=== PATIENT | female | born 1965 | race Caucasian/White ===

== ENCOUNTER 2018-05-18 09:31 | Emergency (ER) | payer OTHER ==
[2018-05-18] MEDS ORDERED: ONDANSETRON 4 MG/2 ML VIAL ONE (10:28)
[2018-05-18] MEDS ORDERED: KETOROLAC 30 MG/ML INJ ONE (10:28)
[2018-05-18] MEDS ORDERED: FENTANYL CITR 100 MCG/2 ML ONE (10:28)
[2018-05-18 10:35] LABS: Absolute Lymphocytes (CBC) 1.2 K/uL (0.7-4.9); Absolute Monocytes 0.6 K/uL (0.1-1.3); Absolute Neutrophil 6.5 K/uL (1.8-8.0); Basophils % 0.8 % (0-1.3); Eosinophils % 2.6 % (0-4.4); Hematocrit 44.4 % (36.0-45.0); Lymphocytes % 14.4 % (15.3-44.8); MCH 29.1 pg (27.0-35.0); MCV 86.8 fL (80-100); MPV 8.6 fL (7.6-11.3); RBC Red Blood Cell Count 5.11 M/uL (3.86-4.86)
[2018-05-18 10:48] LABS: Albumin 3.6 g/dL (3.4-5.0); Bilirubin Direct 0.1 mg/dL (0-0.2); Bilirubin Total 0.5 mg/dL (0.2-1.0); Potassium 4.2 mmol/L (3.5-5.1); Protein, Total 7.5 g/dL (6.4-8.2)
--- NOTE | 2018-05-18 11:00 | RAD REPORT ---
EXAM DESCRIPTION: CT - Abdomen Pelvis Wo Contrast - 05/18/2018 10:38 am CLINICAL HISTORY: Abdominal pain right flank pain since this morning. COMPARISON: None TECHNIQUE: Computed axial tomography of the abdomen and pelvis was obtained. IV and oral contrast we re not requested. All CT scans are performed using dose optimization technique as appropriate and may include automated exposure control or mA/KV adjustment according to patient size. FINDINGS: The evaluation of solid organs, vessels and bowel is limited secondary to the lack of con trast administration. Small bilateral renal calculi are present. Mild right hydronephrosis is seen. Two calculi are present within the proximal right ureter. One measures 6 millimeters. The other 2.8 millimeters. Hounsfield unit 449. The liver has a diminished attenuation compatible with fatty the spleen, pancreas and adrenals appear grossly normal. Postsurgical changes involve stomach. A small umbilical hernia contains fat. The appendix is normal. There is no evidence of diverticulitis. A hysterectomy has been performed IMPRESSION: Proximal right ureteral calculi resulting in mild right hydronephrosis
--- NOTE | 2018-05-18 11:51 | EDPHYS ---
Physician Documentation [facility] Name: Unruly Vasquez Age: 53 yrs Sex: Female : 1965 Arrival Date: 05/18/2018 Time: 09:34 Bed 7 Private MD: Vasquez Hurtado ED Physician Sudarshan Infante HPI: 05/18 11:41 This 53 yrs old Female presents to ER via Ambulatory with complaints of RIGHT wa SIDE PAIN. 11:41 The patient complains of pain in the right flank. Location: right flank. Onset: The wa symptoms/episode began/occurred 3 day(s) ago. Modifying factors: The symptoms are alleviated by nothing. the symptoms are aggravated by nothing. Associated signs and symptoms: Pertinent positives: noted discolored urine x 1 week. denies dysuria or frequency. denies fever or chills. Severity of pain: At its worst the pain was moderate in the emergency department the pain is actually worse markedly. The patient has experienced a previous episode, h/o kidney stones. The patient has been recently seen by a physician: the patient's primary care provider. Historical: - Allergies: 09:37 No Known Allergies; hb - PMHx: 09:39 Breast CA; hb - PSHx: 09:39 Mastectomy; hb 09:39 ; Hysterectomy; hb - Immunization history:: Adult Immunizations up to date. - Social history:: Smoking status: Patient/guardian denies using alcohol, street drugs, tobacco products. - Family history:: not pertinent. - Ebola Screening: : No symptoms or risks identified at this time. - Hospitalizations: : No recent hospitalization is reported. ROS: 11:44 Constitutional: Negative for fever, chills, and weight loss, Eyes: Negative for injury, wa pain, redness, and discharge, ENT: Negative for injury, pain, and discharge, Neck: Negative for injury, pain, and swelling, Cardiovascular: Negative for chest pain, palpitations, and edema, Respiratory: Negative for shortness of breath, cough, wheezing, and pleuritic chest pain, Back: Negative for injury and pain, MS/Extremity: Negative for injury and deformity, Skin: Negative for injury, rash, and discoloration, Neuro: Negative for headache, weakness, numbness, tingling, and seizure, Psych: Negative for depression, anxiety, suicide ideation, homicidal ideation, and hallucinations. 11:44 Abdomen/GI: Positive for of the right flank, Negative for nausea and vomiting, diarrhea. 11:44 : Positive for urine discoloration. 11:44 All other systems are negative. Exam: 11:45 Constitutional: This is a well developed, well nourished patient who is awake, alert, wa and in no acute distress. Head/Face: Normocephalic, atraumatic. Eyes: Pupils equal round and reactive to light, extra-ocular motions intact. Lids and lashes normal. Conjunctiva and sclera are non-icteric and not injected. Cornea within normal limits. Periorbital areas with no swelling, redness, or edema. ENT: Nares patent. No nasal discharge, no septal abnormalities noted. Tympanic membranes are normal and external auditory canals are clear. Oropharynx with no redness, swelling, or masses, exudates, or evidence of obstruction, uvula midline. Mucous membranes moist. Neck: Trachea midline, no thyromegaly or masses palpated, and no cervical lymphadenopathy. Supple, full range of motion without nuchal rigidity, or vertebral point tenderness. No Meningismus. Chest/axilla: Normal chest wall appearance and motion. Nontender with no deformity. No lesions are appreciated. Cardiovascular: Regular rate and rhythm with a normal S1 and S2. No gallops, murmurs, or rubs. Normal PMI, no JVD. No pulse deficits. Respiratory: Lungs have equal breath sounds bilaterally, clear to auscultation and percussion. No rales, rhonchi or wheezes noted. No increased work of breathing, no retractions or nasal flaring. Back: No spinal tenderness. No costovertebral tenderness. Full range of motion. Skin: Warm, dry with normal turgor. Normal color with no rashes, no lesions, and no evidence of cellulitis. MS/ Extremity: Pulses equal, no cyanosis. Neurovascular intact. Full, normal range of motion. Neuro: Awake and alert, GCS 15, oriented to person, place, time, and situation. Cranial nerves II-XII grossly intact. Motor strength 5/5 in all extremities. Sensory grossly intact. Cerebellar exam normal. Normal gait. Psych: Awake, alert, with orientation to person, place and time. Behavior, mood, and affect are within normal limits. 11:45 Abdomen/GI: Inspection: abdomen appears normal, Bowel sounds: normal, in all quadrants, Palpation: soft, in all quadrants, mild abdominal tenderness, in the right lower quadrant. Vital Signs: 09:37 BP 170 / 101; Pulse 66; Resp 18; Temp 98.7(O); Pulse Ox 96% on R/A; Pain 8/10; hb 10:34 BP 152 / 92; Pulse 70; Resp 24; Pulse Ox 97% on R/A; sv 10:50 BP 147 / 88; Pulse 60; Resp 20; Pulse Ox 95% on R/A; sv 12:07 BP 135 / 75; Pulse 66; Resp 20; Pulse Ox 99% ; sv MDM: 09:41 Patient medically screened. de 11:46 Differential diagnosis: nephrolithiasis, pyelonephritis, UTI. Data reviewed: vital wa signs, nurses notes, lab test result(s). Test interpretation: by ED physician or midlevel provider: labs faxed from PMDs office shows 3+ blood in UA. also 6-10 wbcs in UA. nml renal fxn.. 11:47 Test interpretation: by ED physician or midlevel provider: CT abd/pelvis: R ureteral wa stone x 2. 6mm and 2mm proximal ureter with assoc hydro. Response to treatment: the patient's symptoms have markedly improved after treatment. 11:48 Special discussion: will give abx. will d/c with Toradol and Flomax. close urology f/u. wa pt advised. 05/18 10:16 Order name: Basic Metabolic Panel; Complete Time: 11:05/18 10:16 Order name: CBC with Diff; Complete Time: 11:05/18 10:16 Order name: Hepatic Function; Complete Time: 11:05/18 10:16 Order name: Lipase; Complete Time: 11:05/18 10:18 Order name: CT Abd/Pelvis - Without Cont; Complete Time: 11:05/18 10:16 Order name: IV Saline Lock; Complete Time: :05/18 10:16 Order name: Labs collected and sent; Complete Time: 10:05/18 10:16 Order name: Urine Dipstick-Ancillary (obtain specimen); Complete Time: 12:10 de Administered Medications: 10:28 Drug: Zofran 2 mg Route: IVP; Site: right antecubital; sv 11:00 Follow up: Response: No adverse reaction sv 10:30 Drug: fentaNYL (PF) 50 mcg Route: IVP; Site: right antecubital; sv 11:00 Follow up: Response: No adverse reaction sv 10:33 Drug: TORadol 30 mg Route: IVP; Site: right antecubital; sv 11:00 Follow up: Response: No adverse reaction sv 12:10 CANCELLED (Duplicate Order): Rocephin - (cefTRIAXone) 1 grams IVPB once over 30 mins; sv (mix in 50 mL NS) 12:15 Drug: Rocephin 1 grams Route: IV; Rate: calculated rate; Site: right antecubital; sv 12:21 Follow up: Response: No adverse reaction; IV Status: Completed infusion; IV Intake: 10mlsv Disposition: 05/18/18 11:50 Discharged to Home. Impression: Acute Right flank pain, Right Ureteral stones with associated hydronephrosis. - Condition is Stable. - Prescriptions for ketorolac 10 mg Oral tablet - take 1 tablet by ORAL route every 8 hours not to exceed 40mg in 24hrs for up to 5 days total use; 15 tablet. Flomax 0.4 mg Oral Capsule, Sust. Release 24 hr - take 1 capsule by ORAL route once daily 1/2 hour following the same meal each day; 7 capsule. Zofran 4 mg Oral Tablet - take 1 tablet by ORAL route every 12 hours As needed; 6 tablet. Cipro 500 mg Oral Tablet - take 1 tablet by ORAL route every 12 hours for 3 days; 6 tablet. - Medication Reconciliation Form, Thank You Letter, Antibiotic Education, Prescription Opioid Use form. - Follow up: Lisa Solano MD; When: 1 - 2 days; Reason: Recheck today's complaints. - Problem is new. - Symptoms have improved. - Notes: follow up with Dr. Solano as discussed for evaluation for the stone in your Right ureter. Signatures: Dispatcher [employer] Leesa Crane RN RN Christine Graves RN RN Sudarshan Infante MD MD wa Corrections: (The following items were deleted from the chart) 12:10 11:34 Rocephin - (cefTRIAXone) 1 grams IVPB once over 30 mins; (mix in 50 mL NS) sv ordered. wa 12:23 11:50 05/18/2018 11:50 Discharged to Home. Impression: Acute Right flank pain; Right sv Ureteral stones with associated hydronephrosis. Condition is Stable. Forms are Medication Reconciliation Form, Thank You Letter, Antibiotic Education, Prescription Opioid Use. Follow up: Lisa Solano; When: 1 - 2 days; Reason: Recheck today's complaints. Problem is new. Symptoms have improved. de
--- NOTE | 2018-05-18 11:51 | ER ---
Nurse's Notes [facility] Name: Unruly Vasquez Age: 53 yrs Sex: Female : 1965 Arrival Date: 05/18/2018 Time: 09:34 Bed 7 Private MD: Vasquez Hurtado Diagnosis: Acute Right flank pain;Right Ureteral stones with associated hydronephrosis Presentation: 05/18 09:36 Presenting complaint: Patient states: RLQ pain 8/10 since this morning. Denies N/V/D. hb Transition of care: patient was not received from another setting of care. Onset of symptoms was May 18, 2018. Risk Assessment: Do you want to hurt yourself or someone else? Patient reports no desire to harm self or others. 09:36 Method Of Arrival: Ambulatory hb 09:36 Acuity: LINDA 3 hb 10:10 Initial Sepsis Screen: Does the patient meet any 2 criteria? No. Patient's initial sv sepsis screen is negative. Does the patient have a suspected source of infection? No. Patient's initial sepsis screen is negative. Care prior to arrival: None. Historical: - Allergies: 09:37 No Known Allergies; hb - PMHx: 09:39 Breast CA; hb - PSHx: 09:39 Mastectomy; hb 09:39 ; Hysterectomy; hb - Immunization history:: Adult Immunizations up to date. - Social history:: Smoking status: Patient/guardian denies using alcohol, street drugs, tobacco products. - Family history:: not pertinent. - Ebola Screening: : No symptoms or risks identified at this time. - Hospitalizations: : No recent hospitalization is reported. Screenin:10 Abuse screen: Denies threats or abuse. Denies injuries from another. Nutritional sv screening: No deficits noted. Tuberculosis screening: No symptoms or risk factors identified. Fall Risk None identified. Assessment: 10:10 General: Appears distressed, uncomfortable, obese, well developed, Behavior is calm, sv cooperative, appropriate for age. Pain: Complains of pain in right lower quadrant and right flank Pain currently is 8 out of 10 on a pain scale. Quality of pain is described as sharp, Pain began 2-3 days ago. Is continuous. Neuro: Level of Consciousness is awake, alert, obeys commands, Oriented to person, place, time, situation, Moves all extremities. Full function Gait is steady. Respiratory: Respiratory effort is even, unlabored, Respiratory pattern is regular, symmetrical. GI: Abdomen is obese, Abd is soft X 4 quads Abd is non tender in right upper quadrant, left upper quadrant and left lower quadrant Abdomen is tender to palpation in right lower quadrant. : Reports burning with urination, discharge, bloody. Derm: Skin is pink, warm \T\ dry. 11:00 Reassessment: Patient appears in no apparent distress at this time. No changes from sv previously documented assessment. Patient and/or family updated on plan of care and expected duration. Pain level reassessed. Patient is alert, oriented x 3, equal unlabored respirations, skin warm/dry/pink. Patient states feeling better. Patient states symptoms have improved. 12:15 Reassessment: Patient appears in no apparent distress at this time. No changes from sv previously documented assessment. Patient and/or family updated on plan of care and expected duration. Pain level reassessed. Patient is alert, oriented x 3, equal unlabored respirations, skin warm/dry/pink. Patient states feeling better. Patient states symptoms have improved. Vital Signs: 09:37 BP 170 / 101; Pulse 66; Resp 18; Temp 98.7(O); Pulse Ox 96% on R/A; Pain 8/10; hb 10:34 BP 152 / 92; Pulse 70; Resp 24; Pulse Ox 97% on R/A; sv 10:50 BP 147 / 88; Pulse 60; Resp 20; Pulse Ox 95% on R/A; sv 12:07 BP 135 / 75; Pulse 66; Resp 20; Pulse Ox 99% ; sv ED Course: 09:34 Patient arrived in ED. sb2 09:35 Vasquez Hurtado DO is Private Physician. sb2 09:37 Triage completed. hb 09:38 Arm band placed on right wrist. hb 09:41 Sudarshan Infante MD is Attending Physician. wa 10:02 Leesa Hitchcock RN is Primary Nurse. sv 10:10 Patient has correct armband on for positive identification. Placed in gown. Bed in low sv position. Call light in reach. Side rails up X2. Pulse ox on. NIBP on. Door closed. Warm blanket given. Head of bed elevated. 10:15 Inserted saline lock: 22 gauge in right antecubital area, using aseptic technique. sv Blood collected. 10:[address] via stretcher. sv 10:37 CT Abd/Pelvis - Without Cont In Process Unspecified. EDMS 11:49 Lisa Solano MD is Referral Physician. wa 12:22 No provider procedures requiring assistance completed. IV discontinued, intact, sv bleeding controlled, No redness/swelling at site. Pressure dressing applied. Administered Medications: 10:28 Drug: Zofran 2 mg Route: IVP; Site: right antecubital; sv 11:00 Follow up: Response: No adverse reaction sv 10:30 Drug: fentaNYL (PF) 50 mcg Route: IVP; Site: right antecubital; sv 11:00 Follow up: Response: No adverse reaction sv 10:33 Drug: TORadol 30 mg Route: IVP; Site: right antecubital; sv 11:00 Follow up: Response: No adverse reaction sv 12:10 CANCELLED (Duplicate Order): Rocephin - (cefTRIAXone) 1 grams IVPB once over 30 mins; sv (mix in 50 mL NS) 12:15 Drug: Rocephin 1 grams Route: IV; Rate: calculated rate; Site: right antecubital; sv 12:21 Follow up: Response: No adverse reaction; IV Status: Completed infusion; IV Intake: 10mlsv Intake: 12:21 IV: 10ml; Total: 10ml. sv Outcome: 11:50 Discharge ordered by . wa 12:23 Discharged to home ambulatory. sv 12:23 Condition: stable 12:23 Discharge instructions given to patient, Instructed on discharge instructions, follow up and referral plans. medication usage, Demonstrated understanding of instructions, follow-up care, medications, Prescriptions given X 4. 12:23 Patient left the ED. sv Signatures: Dispatcher [employer] EDSC Leesa Hitchcock RN RN sv [facility], Heather, RN RN Sudarshan Infante MD MD wa Billeau, Sheri sb2
[2018-05-18] MEDS ORDERED: CEFTRIAXONE/SWI 1gm 1 GM/10 ML SYR ONE (12:15)
[2018-05-18 12:27] VITALS: TEMP 98.7
[2018-05-18 12:32] VITALS: BP 135/75; O2SAT 99
== END 2018-05-18 12:23 | disposition home or self-care (01) ==
LOC: ER 09:31
DX: N13.2 Hydronephrosis with renal and ureteral calculous obstruction (principal); Z85.3 Personal history of malignant neoplasm of breast
CPT/HCPCS: 36415; 74176; 80048; 80076; 83690; 85025; 96374; 96375; 99284; J0696; J2405; J3010

== ENCOUNTER 2023-04-10 20:59 | Emergency (ER) | payer OTHER ==
--- OUTSIDE RECORDS SUMMARY | 2023-04-10 21:03 | XMS REPORT | Continuity of Care Document ---
:1965 Author Organization [facility] t Address [address] [place] [address] Care Team Providers Name Role Phone Xochitl Lynch Attending Clinician Unavailable Payers Payer Name Policy Type Policy Number Effective Date Expiration Date Ze encinas [facility] Individual 53 [id number] Common Exchange Benefit [facility] Plan [facility] Problems Condition Condition Condition Status Onset Resolution Last Treating Co mments Source Name Details Category Date Date Treatment Clinician Date Hypothyroi Hypothyroi Problem C ommon dism dism [facility] Body mass Adult BMI Problem Com mon index 40+ 40.0-44.9 Spir it - severely kg/sq m - [facility] obese [facility] [id number] Hyperchole Problem Com mon steremia [facility] [id number] Morbid Problem Commo n 9104 (severe) [facility] obesity - [facility] due to [facility] 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 - [facility] without without St complicati complicati [place] [facility] Allergic Allergic Problem Commo n rhinitis rhinitis, Spiri t unspecifie - [facility] d [facility] Urinary Unspecifie Problem Comm on incontinen d urinary Spi rit ce incontinen - [facility] ce [facility] [id number] Cataract, Problem Com mon unspecifie [facility] d [facility] Anemia Anemia, Problem Common unspecifie Spirit d - [facility] Essential Benign Problem Common hypertensi essential Spi rit on HTN - [facility] Allergies, Adverse Reactions, Alerts This patient has no known allergies or adverse reactions. Social History Social Habit Start Date Stop Date Quantity Comments Source History of Tobacco Use Co mmon [facility] Sex Assigned At Com mon [facility] Smoking Status Start Date Stop Date Source Never Smoker Common [facility] Medications Ordered Filled Start Stop Current Ordering Indication Dosage Frequency Signature Comments Components Source Medication Medication Date Date Medication? Clinician (SIG) Name Name Victoriano Pastrana 2021-11- No Victoriano 1.5mg/0.5ml 1.5mg/0.5ml 2 02-19 1.5mg/0.5m 00:00: 00:00 l 00 :00 Victoriano Pastrana 2021-11- No Kalynity 1.5mg/0.5ml 1.5mg/0.5ml 2 02-19 1.5mg/0.5m 00:00: 00:00 l 00 :00 Victoriano Pastrana 2021-11- No Kalynity 1.5mg/0.5ml 1.5mg/0.5ml 2 02-19 1.5mg/0.5m 00:00: 00:00 l 00 :00 Mounjaro Mounjaro 2021-11- No Mounjaro 2.5 2.5 - 12-11 2.5 MG/0.5ML MG/0.5ML 00:00: 00:00 MG/0.5ML 00 :00 Mounjaro 5 Mounjaro 5 2021-11- No Mounjaro 5 MG/0.5ML MG/0.5ML -11 12-11 MG/0.5ML 00:00: 00:00 00 :00 metFORMIN metFORMIN 2020-11 No 1{table QD metFORMIN HCl ER 750 HCl ER 750 1-15 t_with_ HCl ER 750 MG MG 00:00: evening MG 00 _meal} metFORMIN metFORMIN 2020-11 No 1{table QD metFORMIN HCl ER 750 HCl ER 750 1-15 t_with_ HCl ER 750 MG MG 00:00: evening MG 00 _meal} metFORMIN metFORMIN 2020-11 No 1{table QD metFORMIN HCl ER 750 HCl ER 750 1-15 t_with_ HCl ER 750 MG MG 00:00: evening MG 00 _meal} metFORMIN metFORMIN 2020-11 No 1{table QD metFORMIN HCl ER 750 HCl ER 750 1-15 t_with_ HCl ER 750 MG MG 00:00: evening MG 00 _meal} metFORMIN metFORMIN 2020-11 No 1{table QD metFORMIN HCl ER 750 HCl ER 750 1-15 t_with_ HCl ER 750 MG MG 00:00: evening MG 00 _meal} metFORMIN metFORMIN 2020-11 No 1{table QD metFORMIN HCl ER 750 HCl ER 750 1-15 t_with_ HCl ER 750 MG MG 00:00: evening MG 00 _meal} Levothyroxi Levothyroxi No QD Levothyrox ne Sodium ne Sodium ine Sodium 25 MCG 25 MCG 25 MCG Levothyroxi Levothyroxi No QD Levothyrox ne Sodium ne Sodium ine Sodium 200 MCG 200 MCG 200 MCG Levothyroxi Levothyroxi No QD Levothyrox ne Sodium ne Sodium ine Sodium 25 MCG 25 MCG 25 MCG Levothyroxi Levothyroxi No QD Levothyrox ne Sodium ne Sodium ine Sodium 200 MCG 200 MCG 200 MCG Levothyroxi Levothyroxi No QD Levothyrox ne Sodium ne Sodium ine Sodium 25 MCG 25 MCG 25 MCG Levothyroxi Levothyroxi No QD Levothyrox ne Sodium ne Sodium ine Sodium 200 MCG 200 MCG 200 MCG Levothyroxi Levothyroxi No QD Levothyrox ne Sodium ne Sodium ine Sodium 200 MCG 200 MCG 200 MCG Levothyroxi Levothyroxi No QD Levothyrox ne Sodium ne Sodium ine Sodium 25 MCG 25 MCG 25 MCG Levothyroxi Levothyroxi No QD Levothyrox ne Sodium ne Sodium ine Sodium 200 MCG 200 MCG 200 MCG Levothyroxi Levothyroxi No QD Levothyrox ne Sodium ne Sodium ine Sodium 25 MCG 25 MCG 25 MCG Levothyroxi Levothyroxi No QD Levothyrox ne Sodium ne Sodium ine Sodium 200 MCG 200 MCG 200 MCG Levothyroxi Levothyroxi No QD Levothyrox ne Sodium ne Sodium ine Sodium 25 MCG 25 MCG 25 MCG Vital Signs Vital Name Observation Time Observation Value Comments Source height 2022-07-20 15:00:00 67 [in_i] Common S p[facility] weight 2022-07-20 15:00:00 276 [lb_av] Common [facility] temperature 2022-07-20 15:00:00 97.8 [degF] [facility] bmi 2022-07-20 15:00:00 43.22 kg/m2 [facility] oximetry 2022-07-20 15:00:00 95 % [facility] respiratory rate 2022-07-20 15:00:00 17 /min Comm on [facility] blood pressure 2022-07-20 15:00:00 136 mm[Hg] Common [facility] systolic [facility] blood pressure 2022-07-20 15:00:00 82 mm[Hg] Common [facility] diastolic [facility] Procedures This patient has no known procedures. Encounters Start End Encounter Admission Attending Care Care Encounter Source Date/Time Date/Time Type Type Clinicians Facility Department ID 2023-02-16 [facility], STLMLC STLMLC [id number] Common 11:50:01 Xochitl [id number] [facility] 2022-12-10 [facility], STLMLC STLMLC [id number] Common 12:14:00 Xochitl [id number] [facility] 2022-12-09 [facility], STLMLC STLMLC [id number] Common 10:43:03 Xochitl [id number] [facility] 2022-07-20 [facility] [place], STLMLC STLMLC [id number] Common 15:02:02 Xochitl [id number] [facility] 2022-12-02 2022-12-02 (TEL) STLMLC STLMLC [id number] Co mmon 00:00:00 00:00:00 [facility] 2022-11-10 2022-11-10 (TEL) STLMLC STLMLC [id number] Co mmon 00:00:00 00:00:00 [facility] 2022-10-05 2022-10-05 (TEL) STLMLC STLMLC [id number] Co mmon 00:00:00 00:00:00 [facility] 2022-10-01 2022-10-01 (TEL) STLMLC STLMLC [id number] Co mmon 00:00:00 00:00:00 [facility] 2022-08-24 2022-08-24 (TEL) STLMLC STLMLC [id number] Co mmon 00:00:00 00:00:00 [facility] 2022-07-20 2022-07-20 OFFICE STLMLC STLMLC [id number] Co mmon 00:00:00 00:00:00 VISIT EST Spir it PT LEVEL 3 - [facility] Results This patient has no known results.
[2023-04-10 22:00] LABS: Absolute Lymphocytes (CBC) 2.2 K/uL (0.7-4.9); Lymphocytes % 34.1 % (15.3-44.8); MCV 84.6 fL (80-100); MPV 8.2 fL (7.6-11.3); RBC Red Blood Cell Count 4.73 M/uL (3.86-4.86)
--- NOTE | 2023-04-10 22:03 | RAD REPORT ---
EXAM DESCRIPTION: RAD - Chest Single View - 04/10/2023 9:51 pm CLINICAL HISTORY: CHEST PAIN COMPARISON: CHEST SINGLE VIEW dated 05/14/2013 FINDINGS: Lines: None. Lungs: Hazy bilateral airspace disease, left greater than right. Pleural: No significant pleural effusions or pneumothorax. Cardiac: Mild cardiomegaly Mediastinum: Within normal limits. Bones: No acute fractures. Other: Surgical clips overlie the right hemithorax . IMPRESSION: Hazy airspace disease bilaterally could reflect underpenetration and/or edema.
[2023-04-10 22:13] LABS: Potassium 3.6 mEq/L (3.5-5.1); Troponin High Sensitivity 4.1 pg/mL (<58.9)
[2023-04-10] MEDS ORDERED: CYCLOBENZAPRINE 10 MG TAB ONE (22:30)
[2023-04-10] MEDS ORDERED: KETOROLAC 30 MG/ML INJ ONE (22:30)
--- NOTE | 2023-04-11 00:23 | ER ---
Nurse's Notes [facility] Name: Unruly Vasquez Age: 58 yrs Sex: Female : 1965 Arrival Date: 04/10/2023 Time: 20:59 Bed 19 Private MD: Diagnosis: Chest pain, unspecified-chest wall pain Presentation: 04/10 21:33 Chief complaint: Patient states: chest pain x 3 days gradually worsening reports kl midsternal non radiating increases with activity denies SOB. Coronavirus screen: Vaccine status: Patient reports being unvaccinated. Ebola Screen: Patient negative for fever greater than or equal to 101.5 degrees Fahrenheit, and additional compatible Ebola Virus Disease symptoms. Initial Sepsis Screen: Does the patient meet any 2 criteria? No. Patient's initial sepsis screen is negative. Does the patient have a suspected source of infection? No. Patient's initial sepsis screen is negative. Risk Assessment: Do you want to hurt yourself or someone else? Patient reports no desire to harm self or others. Onset of symptoms was April 08, 2023. 21:33 Method Of Arrival: Ambulatory 21:33 Acuity: LINDA 3 kl Triage Assessment: 21:36 General: Appears distressed, uncomfortable, Behavior is cooperative, anxious. Pain: Complains of pain in chest Pain currently is 8 out of 10 on a pain scale. at worst was 10 out of 10 on a pain scale. Quality of pain is described as aching, sharp, Aggravated by increased activity, repositioning. EENT: No deficits noted. Neuro: No deficits noted. Cardiovascular: Heart tones S1 S2 Rhythm is sinus rhythm. Respiratory: No deficits noted. GI: No deficits noted. No signs and/or symptoms were reported involving the gastrointestinal system. : No deficits noted. No signs and/or symptoms were reported regarding the genitourinary system. Derm: No deficits noted. No signs and/or symptoms reported regarding the dermatologic system. Musculoskeletal: No deficits noted. Historical: - Allergies: 21:35 No Known Allergies; kl - PMHx: 21:35 BREAST CA; IDDM; kl - PSHx: 21:35 breast reconstruction; kl - Immunization history:: Adult Immunizations not up to date. - Social history:: Smoking status: Patient denies any tobacco usage or history of. Screenin:40 [facility] ED Fall Risk Assessment (Adult) History of falling in the last 3 months, kl including since admission No falls in past 3 months (0 pts) Confusion or Disorientation No (0 pts) Intoxicated or Sedated No (0 pts) Impaired Gait No (0 pts) Mobility Assist Device Used No (0 pt) Altered Elimination No (0 pt) Score/Fall Risk Level 0 - 2 = Low Risk Oriented to surroundings, Maintained a safe environment. Abuse screen: Denies threats or abuse. Nutritional screening: No deficits noted. Tuberculosis screening: No symptoms or risk factors identified. Assessment: 22:40 Pain: Complains of pain in chest Pain does not radiate. Pain began 2-3 days ago. kl Aggravated by increased activity. 04/11 00:19 Reassessment: Patient appears in no apparent distress at this time. pt sleeping kl respirations even nonlabored. Vital Signs: 04/10 21:33 BP 132 / 94; Pulse 71; Resp 16; Temp 98.8(O); Pulse Ox 98% on R/A; Weight 122.47 kg kl (R); Height 5 ft. 7 in. ; Pain 08/10; 22:39 BP 132 / 84; Pulse 78; Resp 16; Pulse Ox 98% on R/A; kl 23:30 BP 148 / 83; Pulse 77; Resp 18; Pulse Ox 93% on R/A; kl 04/11 00:25 BP 143 / 96; kl 04/10 21:33 Body Mass Index 42.29 (122.47 kg, 170.18 cm) 04/10 21:33 Pain Scale: Adult ED Course: 04/10 21:04 Patient arrived in ED. bp1 21:16 Bozena Nuñez FNP-C is PHCP. kb 21:16 Edilberto Reich MD is Attending Physician. kb 21:35 Triage completed. kl 21:49 Inserted saline lock: 20 gauge in right antecubital area, using aseptic technique. mw1 Blood collected. 21:52 XRAY Chest (1 view) In Process Unspecified. EDMS 22:40 Patient has correct armband on for positive identification. Placed in gown. Bed in low kl position. Call light in reach. Side rails up X2. Client placed on continuous cardiac and pulse oximetry monitoring. NIBP monitoring applied. Door closed. Noise minimized. Lights dimmed. Warm blanket given. 23:33 CT Chest For PE Angio In Process Unspecified. EDMS 06 00:35 No provider procedures requiring assistance completed. Patient transferred, IV remains kl in place. IV discontinued, intact, bleeding controlled, No redness/swelling at site. Pressure dressing applied. 00:35 Patient maintains SpO2 saturation greater than 95% on room air. 00:36 EKG completed in triage. Results shown to . bethany Administered Medications: 04/10 22:28 Drug: Cyclobenzaprine PO 10 mg Route: PO; 04/11 00:19 Follow up: Response: No adverse reaction; Marked relief of symptoms 04/10 22:28 Drug: Ketorolac IVP 15 mg Route: IVP; Site: right antecubital; 04/11 00:19 Follow up: Response: No adverse reaction; Marked relief of symptoms bethany Medication: 00:35 VIS not applicable for this client. bethany Outcome: 00:23 Discharge ordered by . kb 00:35 Discharged to home ambulatory. 00:35 Condition: stable 00:35 Discharge instructions given to patient, Instructed on discharge instructions, follow up and referral plans. medication usage, Demonstrated understanding of instructions, follow-up care, medications, Prescriptions given X 2. 00:36 Patient left the ED. bethany Signatures: Dispatcher [employer] EDBozena Fuentes, BAKER BREAD-C BAKER BREAD-Lorene Godinez, Rafat Núñez RN mw1 Venessa Hall [facility] Corrections: (The following items were deleted from the chart) 00:25 10 23:30 BP 143 / 96; Pulse 77bpm; Resp 18bpm; Pulse Ox 99%; bethany sims
--- NOTE | 2023-04-11 00:24 | EDPHYS ---
Physician Documentation [facility] Name: Unruly Vasquez Age: 58 yrs Sex: Female : 1965 Arrival Date: 04/10/2023 Time: 20:59 Bed 19 Private MD: ED Physician Edilberto Reich HPI: 04/11 00:12 This 58 yrs old Female presents to ER via Ambulatory with complaints of Chest Pain > 30 kb y/o. 00:12 The patient or guardian reports chest pain that is located primarily in the chest kb diffusely. Onset: 2 day(s) ago. The pain does not radiate. Associated signs and symptoms: Pertinent positives: None. Pertinent negatives: cough, nausea, near syncope, palpitations, shortness of breath. The chest pain is described as aching, sharp. Duration: The patient or guardian reports a single episode, that is still ongoing. Modifying factors: The symptoms are alleviated by remaining still, the symptoms are aggravated by activity, cough, deep breath, movement, palpation of area. Severity of pain: At its worst the pain was moderate in the emergency department the pain is unchanged. The patient has not experienced similar symptoms in the past. The patient has not recently seen a physician. Historical: - Allergies: 04/10 21:35 No Known Allergies; kl - PMHx: 21:35 BREAST CA; IDDM; kl - PSHx: 21:35 breast reconstruction; kl - Immunization history:: Adult Immunizations not up to date. - Social history:: Smoking status: Patient denies any tobacco usage or history of. ROS: 04/11 00:11 Constitutional: Negative for fever, chills, and weight loss. kb Cardiovascular: Positive for chest pain. All other systems are negative. Exam: 04/10 22:07 Constitutional: This is a well developed, well nourished patient who is awake, alert, kb and in no acute distress. Head/Face: Normocephalic, atraumatic. ENT: Moist Mucous membranes Cardiovascular: Regular rate and rhythm with a normal S1 and S2. No gallops, murmurs, or rubs. No pulse deficits. Respiratory: Respirations even and unlabored. No increased work of breathing. Talking in full sentences Abdomen/GI: Soft, non-tender. No distention Skin: Warm, dry with normal turgor. Normal color. MS/ Extremity: Pulses equal, no cyanosis. Neurovascular intact. Full, normal range of motion. Neuro: Awake and alert, GCS 15, oriented to person, place, time, and situation. Moves all extremities. Normal gait. Chest/axilla: Inspection: normal, Palpation: tenderness, that is moderate, of the chest, that totally reproduces the patient's complaints. ECG was reviewed by the Attending Physician. Vital Signs: 21:33 BP 132 / 94; Pulse 71; Resp 16; Temp 98.8(O); Pulse Ox 98% on R/A; Weight 122.47 kg kl (R); Height 5 ft. 7 in. ; Pain 08/10; 22:39 BP 132 / 84; Pulse 78; Resp 16; Pulse Ox 98% on R/A; kl 23:30 BP 148 / 83; Pulse 77; Resp 18; Pulse Ox 93% on R/A; kl 04/11 00:25 BP 143 / 96; kl 04/10 21:33 Body Mass Index 42.29 (122.47 kg, 170.18 cm) 04/10 21:33 Pain Scale: Adult kl MDM: 04/10 21:16 Patient medically screened. 04/11 00:11 Differential diagnosis: abnormal EKG, acute myocardial infarction, coronary artery kb disease chest wall pain, pneumothorax, pulmonary embolus. Data reviewed: vital signs, nurses notes. 00:22 Scoring Tools PERC Rule for PE Age >/= 50 Yes. Counseling: I had a detailed discussion kb with the patient and/or guardian regarding: the historical points, exam findings, and any diagnostic results supporting the discharge/admit diagnosis, lab results, radiology results, the need for outpatient follow up, a family practitioner, to return to the emergency department if symptoms worsen or persist or if there are any questions or concerns that arise at home. 04/10 21:22 Order name: Basic Metabolic Panel; Complete Time: 22:14 kb 04/10 21:22 Order name: CBC with Diff; Complete Time: 22:07 kb 04/10 21:22 Order name: Troponin HS; Complete Time: 22:14 kb 04/10 21:22 Order name: XRAY Chest (1 view); Complete Time: 22:07 kb 04/10 22:34 Order name: CT Chest For PE Angio kb 04/10 21:22 Order name: EKG; Complete Time: :23 04/10 21:22 Order name: Cardiac monitoring 04/10 21:22 Order name: EKG - Nurse/Tech 04/10 21:22 Order name: IV Saline Lock 04/10 21:22 Order name: Labs collected and sent 04/10 21:22 Order name: O2 Per Protocol 04/10 21:22 Order name: O2 Sat Monitoring EC/10 22:07 Rate is 67 beats/min. Rhythm is regular. QRS [place] is Normal. [place] interval is normal at kb 164 msec. QRS interval is normal at 92 msec. QT interval is normal at 418 msec. Administered Medications: : Drug: Cyclobenzaprine PO 10 mg Route: PO; 04/11 00:19 Follow up: Response: No adverse reaction; Marked relief of symptoms 04/10 22:28 Drug: Ketorolac IVP 15 mg Route: IVP; Site: right antecubital; 04/11 00:19 Follow up: Response: No adverse reaction; Marked relief of symptoms Disposition Summary: 04/11/23 00:23 Discharge Ordered Location: Home kb Condition: Stable Diagnosis - Chest pain, unspecified - chest wall pain kb Followup: kb - With: Emergency Department - When: As needed - Reason: Worsening of condition Followup: kb - With: Private Physician - When: 2 - 3 days - Reason: Recheck today's complaints, Continuance of care, Re-evaluation by your physician Discharge Instructions: - Discharge Summary Sheet kb - Chest Wall Pain, [id number] kb Forms: - Medication Reconciliation Form kb - Thank You Letter kb - Antibiotic Education kb - Prescription Opioid Use Prescriptions: - Cyclobenzaprine 10 mg Oral Tablet - take 1 tablet by ORAL route every 8 hours As needed; 21 tablet; Refills: 0, kb Product Selection Permitted - Diclofenac Sodium 75 mg Oral tablet,delayed release (DR/EC) - take 1 tablet by ORAL route 2 times per day As needed; 30 tablet; Refills: 0, kb Product Selection Permitted Signatures: Dispatcher [employer] Bozena Vaughn FNP-C FNP-Ckb Lewis, Kimberly RN RN bethany
[2023-04-11 01:14] VITALS: TEMP 98.8
[2023-04-11 01:21] VITALS: O2SAT 93
[2023-04-11 01:22] VITALS: BP 143/96
--- NOTE | 2023-04-12 12:06 | EKG ---
Test Date: 2023-04-10 Test Time: 21:25:11 Butadiene Converter Operator: DALILA MEASUREMENT RESULTS: Intervals: Rate: 67 LA: 164 QRSD: 92 QT: 396 QTc: 418 [place]: P: 63 LA: 164 QRS: 60 T: 60 INTERPRETIVE STATEMENTS: Normal sinus rhythm Normal ECG Compared to ECG 05/14/2013 22:19:44 Sinus tachycardia no longer present Left posterior fascicular block no longer present Electronically Signed On 04-12-23 12:00:57 CDT by Noble Braun
--- NOTE | 2023-04-12 12:16 | RAD REPORT ---
EXAM DESCRIPTION: CT - Chest For Pe Angio - 04/11/2023 6:38 am CLINICAL HISTORY: The patient is 58 years old and is Female; CHEST PAIN TECHNIQUE: Axial computed tomographic angiography images of the chest with intravenous contrast. T his CT exam was performed using one or more of the following dose reduction techniques: automated e xposure control, adjustment of the mA and/or kV according to patient size, and/or use of iterative re construction technique. MIP reconstructed images were created and reviewed. Oblique reformatted images were created and reviewed. DLP: 656 mGy*cm COMPARISON: Chest radiograph of the same day. FINDINGS: PULMONARY ARTERIES: Unremarkable. No pulmonary embolism. AORTA: No acute findings. No thoracic aortic aneurysm. LUNGS: Dependent subsegmental atelectasis. No focal consolidation. PLEURAL SPACE: Unremarkable. No significant effusion. No pneumothorax. HEART: Unremarkable. No cardiomegaly. No significant pericardial effusion. No evidence of RV dysfunction. BONES/JOINTS: No acute fracture. No dislocation. SOFT TISSUES: Prior left mastectomy. LYMPH NODES: Unremarkable. No enlarged lymph nodes. IMPRESSION: 1. No pulmonary embolism. No acute intrathoracic abnormality. 2. Prior left mastectomy. Electronically signed by: Amol Sharif DO 04/11/2023 12:11 AM CDT Due to temporary technical issues with the PACS/Fluency reporting system, reports are being signed by the in house radiologist without review as a courtesy to ensure prompt reporting. The interpreting r adiologist is fully responsible for the content of the report.
== END 2023-04-11 00:36 | disposition home or self-care (01) ==
LOC: ER 20:59
DX: R07.89 Other chest pain (principal); Z85.3 Personal history of malignant neoplasm of breast
CPT/HCPCS: 93005; 85025; 80048; 36415; 84484; 71275; 71045; 96374; 99285; Q9967